=== PATIENT | male | born 1935 | race Two or more races ===

== ENCOUNTER 2017-08-28 13:22 | Outpatient (CLI) | payer OTHER | END 2017-08-28 14:00 | disposition home or self-care (01) | LOC: LAB 13:22 | DX: R59.0 Localized enlarged lymph nodes (principal); I87.2 Venous insufficiency (chronic) (peripheral); I65.29 Occlusion and stenosis of unspecified carotid artery; J45.909 Unspecified asthma, uncomplicated; I69.90 Unspecified sequelae of unspecified cerebrovascular disease; N52.8 Other male erectile dysfunction; I10 Essential (primary) hypertension; I73.89 Other specified peripheral vascular diseases; E78.4 Other hyperlipidemia; N20.0 Calculus of kidney; I63.8 Other cerebral infarction ==

== ENCOUNTER 2017-08-28 15:17 | Outpatient (CLI) | payer OTHER | END 2017-08-28 15:38 | disposition home or self-care (01) | LOC: SONOGRAMA 15:17 | DX: R59.0 Localized enlarged lymph nodes (principal); I65.29 Occlusion and stenosis of unspecified carotid artery; N20.0 Calculus of kidney ==

== ENCOUNTER 2017-09-26 09:26 | Outpatient (CLI) | payer OTHER | END 2017-09-26 09:29 | disposition home or self-care (01) | LOC: SONOGRAMA 09:26 | DX: C07 Malignant neoplasm of parotid gland (principal); E04.1 Nontoxic single thyroid nodule ==

== ENCOUNTER → 2018-03-27 09:24 | Outpatient (CLI) | payer OTHER | END | disposition home or self-care (01) | LOC: LAB 09:24 | DX: K57.30 Diverticulosis of large intestine without perforation or abscess without bleeding (principal); I87.2 Venous insufficiency (chronic) (peripheral); I65.29 Occlusion and stenosis of unspecified carotid artery; J45.909 Unspecified asthma, uncomplicated; I69.90 Unspecified sequelae of unspecified cerebrovascular disease; N52.8 Other male erectile dysfunction; E78.49 Other hyperlipidemia; I10 Essential (primary) hypertension; I73.89 Other specified peripheral vascular diseases; N20.0 Calculus of kidney; I99.8 Other disorder of circulatory system ==

== ENCOUNTER 2018-03-28 09:46 | Outpatient (CLI) | payer OTHER | END 2018-03-28 11:09 | disposition home or self-care (01) | LOC: LAB 09:46 | DX: K57.30 Diverticulosis of large intestine without perforation or abscess without bleeding (principal); I87.2 Venous insufficiency (chronic) (peripheral); I65.29 Occlusion and stenosis of unspecified carotid artery; J45.998 Other asthma; I69.898 Other sequelae of other cerebrovascular disease; E78.49 Other hyperlipidemia; N52.8 Other male erectile dysfunction; I10 Essential (primary) hypertension; I73.89 Other specified peripheral vascular diseases ==

== ENCOUNTER 2018-07-07 13:04 | Outpatient (CLI) | payer OTHER | END 2018-07-07 15:47 | disposition home or self-care (01) | LOC: MRI 13:04 | DX: M51.16 Intervertebral disc disorders with radiculopathy, lumbar region (principal) | CPT/HCPCS: 72148 ==

== ENCOUNTER 2018-07-21 11:22 | Outpatient (CLI) | payer OTHER | END 2018-07-21 14:55 | disposition home or self-care (01) | LOC: LAB 11:22 | DX: K57.30 Diverticulosis of large intestine without perforation or abscess without bleeding (principal); I87.2 Venous insufficiency (chronic) (peripheral); I65.29 Occlusion and stenosis of unspecified carotid artery; J45.909 Unspecified asthma, uncomplicated; I69.90 Unspecified sequelae of unspecified cerebrovascular disease; N52.8 Other male erectile dysfunction; E78.49 Other hyperlipidemia; I10 Essential (primary) hypertension ==

== ENCOUNTER 2018-07-22 12:02 | Outpatient (CLI) | payer OTHER | END 2018-07-22 14:08 | disposition home or self-care (01) | LOC: LAB 12:02 | DX: N40.0 Benign prostatic hyperplasia without lower urinary tract symptoms (principal); D64.89 Other specified anemias; K57.30 Diverticulosis of large intestine without perforation or abscess without bleeding; I87.2 Venous insufficiency (chronic) (peripheral); I65.29 Occlusion and stenosis of unspecified carotid artery; J45.909 Unspecified asthma, uncomplicated; N62 Hypertrophy of breast; E78.49 Other hyperlipidemia; I73.89 Other specified peripheral vascular diseases; N52.8 Other male erectile dysfunction ==

== ENCOUNTER → 2018-08-06 | Outpatient (CLI) | payer OTHER | END | disposition home or self-care (01) | LOC: SONOGRAMA 12:05 | DX: D49.7 Neoplasm of unspecified behavior of endocrine glands and other parts of nervous system (principal) ==